=== PATIENT | female | born 1960 ===

== ENCOUNTER 2016-11-05 01:32 | Observation (INO) | payer SELFPAY ==
[2016-11-05 02:09] VITALS: RESP 20
[2016-11-05] MEDS ORDERED: Sodium Chloride 0.9% 1,000 ML IV ONE (02:16)
--- NOTE | 2016-11-05 03:02 | C.PDOC ---
Addendum entered and electronically signed by Joan Fernandez MD 11/07/16 16: 53: Addendum Addendum: 11/07/16 16:50 Pt with pyelonephritis. Needs admission for IV antibiotics due to +ESBL. Pt being called, but unable to contact to return. Pt was d/w ED director Dr. Wilde who will continue to contact the pt to return to the ED. Please disregard the automated statement generated by the EMR pertaining to the agreement with PA documentation. Addendum entered and electronically signed by Everette Stover DO 11/06/16 15:21: Addendum Addendum: Patient called * 09:11 * 10:53 * 12:00 * 14:08 * 14:35 Patient was called at , multiple times without answer. Telegram will be sent. Original Note: History Of Present Illness <Cindy Parry - Last Filed: 11/05/16 06:20> <Everette Stover - Last Filed: 11/06/16 08:55> 56 year old female c/o left lower abdominal pain since yesterday and worsening today. Patient reports no bowel movement for the past 2 days and denies urinary symptoms. Patient reports a subjective fever but denies any nausea, vomiting, chest pain, headache, dizziness, SOB, or any other complaints. (Cindy Parry) History Per: Patient, Family History/Exam Limitations: no limitations Onset/Duration Of Symptoms: Days Current Symptoms Are (Timing): Still Present Severity: Mild Location Of Pain/Discomfort: LLQ Associated Symptoms: Fever. denies: Nausea, Vomiting, Diarrhea Abnormal Vaginal Bleeding: No <Cindy Parry - Last Filed: 11/05/16 06:20> <Everette Stover - Last Filed: 11/06/16 08:55> Time Seen by Provider: 11/05/16 02:11 Chief Complaint (Nursing): Abdominal Pain Past Medical History Reviewed: Historical Data, Nursing Documentation, Vital Signs - Medical History PMH: Diabetes Family History: States: Unknown Family Hx - Social History Hx Alcohol Use: No Hx Substance Use: No - Immunization History Hx Tetanus Toxoid Vaccination: No Hx Influenza Vaccination: No Hx Pneumococcal Vaccination: No <Cindy Parry - Last Filed: 11/05/16 06:20> Vital Signs: Last Vital Signs Temp 98 F 11/05/16 06:34 Pulse 78 11/05/16 06:34 Resp 20 11/05/16 06:34 BP 129/76 11/05/16 06:34 Pulse Ox 98 11/05/16 06:34 Review Of Systems Constitutional: Positive for: Fever (Subjective) Cardiovascular: Negative for: Chest Pain, Palpitations Respiratory: Negative for: Cough, Shortness of Breath Gastrointestinal: Positive for: Abdominal Pain (Left lower quadrant), Constipation. Negative for: Nausea, Vomiting, Diarrhea, Rectal Pain Genitourinary: Negative for: Dysuria Neurological: Negative for: Headache, Dizziness <Cindy Parry Last Filed: 11/05/16 06:20> Physical Exam - Physical Exam Appears: Non-toxic, Other (Uncomfortable) Skin: Warm, Dry Head: Atraumatic, Normacephalic Eye(s): bilateral: Normal Inspection, EOMI Neck: Normal ROM Chest: Symmetrical Cardiovascular: Rhythm Regular, No Murmur Respiratory: Normal Breath Sounds, No Rales, No Rhonchi, No Wheezing Gastrointestinal/Abdominal: Bowel Sounds (normal active), Soft, Tenderness ( Tenderness of LLQ), No Mass, No Distention, No Guarding Back: Normal Inspection, No CVA Tenderness Extremity: Bilateral: Atraumatic, No Pedal Edema, Normal Color And Temperature, Normal ROM Neurological/Psych: Oriented x3, Normal Speech <Cindy Parry Last Filed: 11/05/16 06:20> ED Course And Treatment - Laboratory Results Result Diagrams: 11/05/16 03:29 11/05/16 03:29 Lab Interpretation: Abnormal O2 Sat by Pulse Oximetry: 97 (Room air) Pulse Ox Interpretation: Normal - CT Scan/US abd/pelvis Other Rad Studies (CT/US): Read By Radiologist, Radiology Report Reviewed CT/US Interpretation: EXAM: CT Abdomen and Pelvis With Intravenous Contrast. CLINICAL HISTORY: 56 years old, female; Pain; Abdominal pain and other: Fever; Additional info: Llq abd pain. TECHNIQUE: Axial computed tomography images of the abdomen and pelvis with intravenous contrast. This CT. exam was performed using one or more of the following dose reduction techniques: automated. exposure control, adjustment of the mA and/or kV according to patient size, and/ or use of iterative. reconstruction technique. Coronal and sagittal reformatted images were created and reviewed. COMPARISON: No relevant prior studies available. FINDINGS: Lower thorax: There is mild bibasilar atelectasis. ABDOMEN: Liver: There is a diffuse decrease in hepatic parenchymal density, consistent with fatty infiltration. No focal liver mass. Gallbladder and bile ducts: Unremarkable. No calcified stones. No ductal dilation. Pancreas: Unremarkable. No mass. No ductal dilation. Spleen: Unremarkable. No splenomegaly. Adrenals: Unremarkable. No mass. Kidneys and ureters: There is an abnormal appearance of the left kidney with multiple regions of. predominantly peripheral ill-defined low attenuation with associated mild perinephric fat stranding. Findings are highly suspicious for acute pyelonephritis. Renal infarction is also within the differential. although considered less likely. A 2.1 cm indeterminate low attenuation lesion is noted arising from the lower pole of the right kidney. Additional tiny low- attenuation lesions in the kidneys too small to. accurately characterize. No hydronephrosis. Stomach and bowel: Mild fecal retention noted within the colon. No obstruction. No mucosal. thickening. Appendix: A normal appendix is identified. PELVIS: Bladder: Unremarkable. No mass. Reproductive: Unremarkable as visualized. ABDOMEN and PELVIS: Intraperitoneal space: Unremarkable. No free air. No significant fluid collection. Bones/joints: There are multilevel degenerative changes noted in the spine. No acute fracture. No. dislocation. Soft tissues: Unremarkable. Vasculature: Unremarkable. No abdominal aortic aneurysm. Lymph nodes: Unremarkable. No enlarged lymph nodes. IMPRESSION: 1. Abnormal appearance of the left kidney with multiple regions of predominantly peripheral illdefined. low attenuation and mild perinephric fat stranding. Findings are considered highly suspicious. for acute pyelonephritis. Renal infarction is also within the differential although considered less likely. Correlation with urinalysis is recommended. 2. Indeterminate 2.1 cm low-attenuation lesion arising from the lower pole of the right kidney. Additional tiny low-attenuation lesions in the kidneys bilaterally too small to accurately characterize. 3. Hepatic steatosis. 4. Additional chronic/incidental findings as described above. <Cindy Parry - Last Filed: 11/05/16 06:20> - Laboratory Results Result Diagrams: 11/05/16 03:29 11/05/16 03:29 <Everette Stover - Last Filed: 11/06/16 08:55> Medical Decision Making <Cindy Parry - Last Filed: 11/05/16 06:20> <Everette Stover - Last Filed: 11/06/16 08:55> Medical Decision Making: Impression: 56 y/o female c/o left lower abdomen pain since yesterday with associated fever. Plan: -CT abd/pelvis -Labs -IV fluids -Urinalysis -obs (Cindy Parry) 08:55 Patients phone number was called multiple times, but phone number is going to voicemail. There are no other contacts/phone numbers to reach patient. Will continue to try and reach patient. (Everette Stover) ED OBSERVATION Discharge: Yes Date of observation admission: 11/05/16 Time of observation admission: 02:17 <Cindy Parry - Last Filed: 11/05/16 06:20> <Everette Stover - Last Filed: 11/06/16 08:55> - Observation admission statement Patient is being placed in observation because:: LLQ abdominal pain (Cindy Parry) - Goals of Observation Goals of observation are:: IV hydration, pain management, CT imaging and labs (Cindy Parry) - Progress Note Progress Note: 11/05/16 03:55 Labs reviewed showing slight leukocytosis with no bands or shift. Urinalysis shows positive nitrates. Urine culture and antibiotics ordered. 11/05/16 04:22 Patient reports pain is improving. CT pending 11/05/16 05:53 CT reviewed showing left sided pyelonephritis. 11/05/16 06:05 Upon reevaluation patient reports feeling better, she has no fever and pain has improved. Discuss labs and CT results with patient. Advise fluids and will treat with antibiotics. Instruct patient to follow up with clinic for further evaluation. (Cindy Parry) Disposition Counseled Patient/Family Regarding: Need For Followup - Disposition Disposition Time: 06:09 - POA Present On Arrival: None <Cindy Parry - Last Filed: 11/05/16 06:20> <Everette Stover - Last Filed: 11/06/16 08:55> - Disposition Disposition: HOME/ ROUTINE Condition: IMPROVED - Clinical Impression Clinical Impression: Pyelonephritis - Scribe Statement The provider has reviewed the documentation as recorded by the Scribe <Cindy Parry - Last Filed: 11/05/16 06:20> <Everette Stover - Last Filed: 11/06/16 08:55> - Scribe Statement Javier kraft All medical record entries made by the Scribe were at my direction and personally dictated by me. I have reviewed the chart and agree that the record accurately reflects my personal performance of the history, physical exam, medical decision making, and the department course for this patient. I have also personally directed, reviewed, and agree with the discharge instructions and disposition. (Cindy Parry)
[2016-11-05 03:32] LABS: BASO % 0.4 % (0.0-2.0); EOS # 0.1 K/uL (0.0-0.7); EOS % 0.6 % (0.0-4.0); HEMATOCRIT 37.5 % (34.0-47.0); LYMPH # 1.2 K/uL (1.0-4.3); LYMPH % 10.9 % (20.0-40.0); MEAN CELL VOLUME 88.5 fL (81.0-99.0); MEAN CORPUSCULAR HEMOGLOBIN 28.4 pg (27.0-31.0); MEAN CORPUSCULAR HGB CONC 32.1 g/dL (33.0-37.0); MEAN PLATELET VOLUME 9.2 fL (7.2-11.7); MONO # 0.8 K/uL (0.0-0.8); MONO % 7.2 % (0.0-10.0); RED CELL DISTRIBUTION WIDTH 12.7 % (11.5-14.5); WHITE BLOOD COUNT 10.9 K/uL (4.8-10.8)
[2016-11-05 03:49] LABS: RBC URINE 4 /hpf (0-3); URINE BACTERIA RARE (<OCC); URINE BILIRUBIN NEGATIVE (NEGATIVE); URINE COLOR Yellow (YELLOW); URINE GLUCOSE (UA) 3+ mg/dL (Normal); URINE KETONE 1+ mg/dL (NEGATIVE); URINE LEUKOCYTE ESTERASE NEG Leu/uL (Negative); URINE PROTEIN 1+ mg/dL (NEGATIVE); URINE UROBILINOGEN NORMAL mg/dL (0.2-1.0); WBC URINE 5 /hpf (0-5)
[2016-11-05 03:54] LABS: URINE BLOOD TRACE (NEGATIVE)
[2016-11-05] MEDS ORDERED: cefTRIAXone IV 1 gm in Dextros 50 ML IV ONE (03:57)
[2016-11-05 03:59] LABS: CHLORIDE 92 mmol/L (98-107); SODIUM 133 mmol/L (132-148)
[2016-11-05 04:00] LABS: POTASSIUM 5.4 mmol/L (3.6-5.2)
[2016-11-05 04:02] LABS: ALB/GLOB RATIO 0.9 (1.0-2.1); ALKALINE PHOSPHATASE 101 U/L (38-126); ALT/SGPT 44 U/L (9-52); AST/SGOT 45 U/L (14-36); BILIRUBIN,TOTAL 1.3 mg/dL (0.2-1.3); BLOOD UREA NITROGEN 15 mg/dL (7-17); CARBON DIOXIDE 27 mmol/L (22-30); GFR AFRICAN-AMERICAN > 60; GLUCOSE,RANDOM 349 mg/dL (65-105); TOTAL PROTEIN 8.7 g/dL (6.3-8.3)
[2016-11-05] MEDS ORDERED: cefTRIAXone IV 1 gm in Dextros 50 ML IVPB ONE (04:28)
[2016-11-05] MEDS ORDERED: Iodixanol 320 MG/ML 100 ML BOTTLE IV ONE (05:12)
[2016-11-05 06:35] VITALS: BP 129/76; PULSE 78; TEMP 98; O2SAT 98
--- NOTE | 2016-11-05 10:29 | CT ---
PROCEDURE: CT Abdomen and Pelvis with contrast HISTORY: LLQ abd pain COMPARISON: None. TECHNIQUE: Contrast dose: 100 mL Omnipaque 300 Radiation dose: Total exam DLP = 363.57 mGy-cm. FINDINGS: LOWER THORAX: Mild bilateral dependent lower lobe atelectasis. LIVER: Normal size and contour. Diffusely diminished attenuation consistent with fatty infiltration. No mass. No biliary ductal dilatation. GALLBLADDER AND BILE DUCTS: Unremarkable. PANCREAS: Unremarkable. No gross lesion or ductal dilatation. SPLEEN: Unremarkable. ADRENALS: Unremarkable. No mass. KIDNEYS AND URETERS: Multiple poorly defined regions of poor enhancement in the left kidney extending to the periphery most likely reflecting acute pyelonephritis. Mild left perinephric stranding. No hydronephrosis. No hydroureter. No renal calculus. 2.1 cm rounded low-attenuation exophytic mass arising from the lower pole right kidney measuring 36 Hounsfield units in attenuation. Likely complex cyst. Correlate with ultrasound. Tiny cortical cysts bilaterally. Too small to characterize. VASCULATURE: Unremarkable. No aortic aneurysm. BOWEL: Unremarkable. No obstruction. No gross mural thickening. APPENDIX: Normal appendix. PERITONEUM: Unremarkable. No free fluid. No free air. LYMPH NODES: Unremarkable. No enlarged lymph nodes. BLADDER: Unremarkable. REPRODUCTIVE: Unremarkable uterus. No adnexal masses. BONES: No acute fracture. OTHER FINDINGS: None. IMPRESSION: Probable left pyelonephritis.No evidence of urinary tract obstruction or calculus. 2.1 cm rounded low-attenuation exophytic cortical mass lower pole right kidney measuring 36 Hounsfield units. Likely complex cyst. Correlate with ultrasound. Diffuse fatty infiltration of the liver. No other significant abnormality. Preliminary interpretation of this examination was reported by [facility] at 6:06 a.m. on 11/05/2016.. There is concurrence of this report with the preliminary interpretation.
== END 2016-11-05 06:09 | disposition home or self-care (01) ==
LOC: C.ER 01:32 → C.9OBSV 02:17
PROVIDERS: ADMIT Emergency Medicine; ATTEND Emergency Medicine
DX: R10.32 Left lower quadrant pain (principal); E11.9 Type 2 diabetes mellitus without complications
CPT/HCPCS: 74177; 80053; 81001; 83690; 85025; 87040; 87086; 87205; 96374; G0378; J0696; J1885; J7040; Q9967